=== PATIENT | male | born 1950 | race Caucasian/White ===

== ENCOUNTER 2017-12-18 12:39 | Emergency (ER) | payer OTHER ==
[~2017-12-18] VITALS: Ht 177.8 cm; Wt 85.5 kg
[~2017-12-18 12:39] MED LIST: ADVAI500I PO; ALBU8I INH; ATOR40TA PO; CLOP75 PO; ECOT81TA2 PO; ENAL2.5 PO; LEVA750T PO; PRED10PA PO; Z.0.OXYGENDME NC
[2017-12-18 12:44] VITALS: BP 129/68; PULSE 82; RESP 20; TEMP 98.8; O2SAT 93
[2017-12-18] MEDS ORDERED: ASPI-516 CHEW (13:00)
[2017-12-18] MEDS ORDERED: ATOR40TA16 PO (13:00)
[2017-12-18] MEDS ORDERED: SPIRCAP INH (13:00)
--- NOTE | 2017-12-18 13:06 | PD ---
HPI Chief Complaint: Fall Time Seen by Provider: 12:51 Travel History International Travel<30 days: No Contact w/Intl Traveler<30days: No Traveled to known affect area: No History of Present Illness HPI 67-year-old male with history of CAD, CABG, COPD, presents emergency department for evaluation following a syncopal episode. Patient has been having coughing spells over the last few weeks. He states today he got into a coughing spell and he coughed until he ended up passing out. He did fall and strike his head. He denies any chest pain or tightness. She denies any dizziness, diaphoresis , lightheadedness preceding this incident. He reports no significant pain at this time. Denies any focal deficits or weakness. Patient has no other symptoms to report at this time. PFSH Past Medical History Arthritis: No Asthma: No Cancer: No Cardiovascular Problems: Yes (ID) Chemotherapy: No Chest Pain: No COPD: Yes Cerebrovascular Accident: No Coronary Artery Disease: Yes Diabetes: No Diminished Hearing: No Endocrine: No Gastrointestinal Disorders: No Genitourinary: No Hypertension: Yes Immune Disorder: No Kidney Stones: No Musculoskeletal: No Neurologic: No Psychiatric: No Reproductive: No Respiratory: No Migraines: No Myocardial Infarction: Yes Radiation Therapy: No Renal Failure: No Thyroid Disease: No Tetanus Vaccination: Unknown Influenza Vaccination: Yes Past Surgical History AICD: No Arteriovenous Shunt: No Coronary Artery Bypass Graft: Yes Coronary Stent: Yes Ear Surgery: Yes (1960- ears pinned back) Insulin Pump: No Joint Replacement: No Pacemaker: No Tonsillectomy: Yes Social History Alcohol Use: Yes (SINGLE BEER WEEKLY) Tobacco Use: Yes (QUIT MAY 2017) Substance Use: No Allergies-Medications (Allergen,Severity, Reaction): Coded Allergies: No Known Allergies (Verified , 03/15/16) Reported Meds & Prescriptions Reported Meds & Active Scripts Active Reported Aspirin 81 Mg Chew 81 Mg CHEW DAILY Spiriva Handihaler (Tiotropium Inh) 18 Mcg Cap 18 Mcg INH DAILY 1 capsule = 18 mcg Atorvastatin (Atorvastatin Calcium) 40 Mg Tab 40 Mg PO HS Review of Systems Except as stated in HPI: all other systems reviewed are Neg Physical Exam Narrative GENERAL: Well-nourished male patient, no acute distress SKIN: Focused skin assessment warm/dry. HEAD: Atraumatic. Normocephalic. 11 cm laceration on the right parietal scalp. Bleeding is controlled EYES: Pupils equal and round. No scleral icterus. No injection or drainage. ENT: No nasal bleeding or discharge. Mucous membranes pink and moist. NECK: Trachea midline. No JVD. No cervical spine tenderness to palpation. No limitation in range of motion of cervical spine. CARDIOVASCULAR: Regular rate and rhythm. No murmur appreciated. RESPIRATORY: No accessory muscle use. Inspiratory and expiratory wheeze, diminished bases to auscultation. Breath sounds equal bilaterally. GASTROINTESTINAL: Abdomen soft, non-tender, nondistended. Hepatic and splenic margins not palpable. MUSCULOSKELETAL: No obvious deformities. No clubbing. No cyanosis. No edema. NEUROLOGICAL: Awake and alert. No obvious cranial nerve deficits. Motor grossly within normal limits. Normal speech. PSYCHIATRIC: Appropriate mood and affect; insight and judgment normal. Data Data Last Documented VS Vital Signs Date Time Temp Pulse Resp B/P (MAP) Pulse Ox O2 Delivery O2 Flow Rate FiO2 12/18/17 13:00 20 96 12/18/17 12:44 98.8 82 129/68 (88) Orders Orders Electrocardiogram (12/18/17 13:05) Basic Metabolic Panel (Bmp) (12/18/17 13:05) Complete Blood Count With Diff (12/18/17 13:05) Magnesium (Mg) (12/18/17 13:05) Ckmb (Isoenzyme) Profile (12/18/17 13:05) Troponin I (12/18/17 13:05) Act Partial Throm Time (Ptt) (12/18/17 13:05) Prothrombin Time / Inr (Pt) (12/18/17 13:05) Chest, Single Ap (12/18/17 13:05) Ct Brain W/O Iv Contrast(Rout) (12/18/17 13:05) Ecg Monitoring (12/18/17 13:05) Iv Access Insert/Monitor (12/18/17 13:05) Oximetry (12/18/17 13:05) Sodium Chloride 0.9% Flush (Ns Flush) (12/18/17 13:15) CKMB (12/18/17 13:40) CKMB% (12/18/17 13:40) Tetanus/Diphtheria Tox Adult (Tetanus/Di (12/18/17 15:00) Labs Laboratory Tests Test 12/18/17 13:40 White Blood Count 7.6 TH/MM3 Red Blood Count 4.46 MIL/MM3 Hemoglobin 14.6 GM/DL Hematocrit 43.2 % Mean Corpuscular Volume 96.9 FL Mean Corpuscular Hemoglobin 32.8 PG Mean Corpuscular Hemoglobin Concent 33.8 % Red Cell Distribution Width 12.6 % Platelet Count 216 TH/MM3 Mean Platelet Volume 8.2 FL Neutrophils (%) (Auto) 71.1 % Lymphocytes (%) (Auto) 15.0 % Monocytes (%) (Auto) 9.2 % Eosinophils (%) (Auto) 3.6 % Basophils (%) (Auto) 1.1 % Neutrophils # (Auto) 5.4 TH/MM3 Lymphocytes # (Auto) 1.1 TH/MM3 Monocytes # (Auto) 0.7 TH/MM3 Eosinophils # (Auto) 0.3 TH/MM3 Basophils # (Auto) 0.1 TH/MM3 CBC Comment DIFF FINAL Differential Comment Prothrombin Time 10.9 SEC Prothromb Time International Ratio 1.1 RATIO Activated Partial Thromboplast Time 25.1 SEC Blood Urea Nitrogen 17 MG/DL Creatinine 1.10 MG/DL Random Glucose 107 MG/DL Calcium Level 8.5 MG/DL Magnesium Level 2.3 MG/DL Sodium Level 140 MEQ/L Potassium Level 4.2 MEQ/L Chloride Level 106 MEQ/L Carbon Dioxide Level 26.6 MEQ/L Anion Gap 7 MEQ/L Estimat Glomerular Filtration Rate 67 ML/MIN Total Creatine Kinase 272 U/L Creatine Kinase MB 9.5 NG/ML Troponin I LESS THAN 0.02 NG/ML MDM Medical Decision Making Medical Screen Exam Complete: Yes Emergency Medical Condition: Yes Medical Record Reviewed: Yes Differential Diagnosis Intracranial hemorrhage versus syncope versus near syncope versus electrolyte abnormality versus cardiac arrhythmia Narrative Course 67-year-old male presents emergency department for evaluation following a syncopal episode. Patient has no focal deficits weakness on exam. He does have a large laceration to the right parietal scalp. This is approximated without difficulty. Laboratory Tests Test 12/18/17 13:40 White Blood Count 7.6 TH/MM3 Red Blood Count 4.46 MIL/MM3 Hemoglobin 14.6 GM/DL Hematocrit 43.2 % Mean Corpuscular Volume 96.9 FL Mean Corpuscular Hemoglobin 32.8 PG Mean Corpuscular Hemoglobin Concent 33.8 % Red Cell Distribution Width 12.6 % Platelet Count 216 TH/MM3 Mean Platelet Volume 8.2 FL Neutrophils (%) (Auto) 71.1 % Lymphocytes (%) (Auto) 15.0 % Monocytes (%) (Auto) 9.2 % Eosinophils (%) (Auto) 3.6 % Basophils (%) (Auto) 1.1 % Neutrophils # (Auto) 5.4 TH/MM3 Lymphocytes # (Auto) 1.1 TH/MM3 Monocytes # (Auto) 0.7 TH/MM3 Eosinophils # (Auto) 0.3 TH/MM3 Basophils # (Auto) 0.1 TH/MM3 CBC Comment DIFF FINAL Differential Comment Prothrombin Time 10.9 SEC Prothromb Time International Ratio 1.1 RATIO Activated Partial Thromboplast Time 25.1 SEC Blood Urea Nitrogen 17 MG/DL Creatinine 1.10 MG/DL Random Glucose 107 MG/DL Calcium Level 8.5 MG/DL Magnesium Level 2.3 MG/DL Sodium Level 140 MEQ/L Potassium Level 4.2 MEQ/L Chloride Level 106 MEQ/L Carbon Dioxide Level 26.6 MEQ/L Anion Gap 7 MEQ/L Estimat Glomerular Filtration Rate 67 ML/MIN Total Creatine Kinase 272 U/L Creatine Kinase MB 9.5 NG/ML Troponin I LESS THAN 0.02 NG/ML Last Impressions Head CT 12/18/17 1305 Signed Impressions: CONCLUSION: 1. Remote left basal ganglia lacunar infarct. 2. No acute intracranial abnormality. Chest X-Ray 12/18/17 1305 Signed Impressions: CONCLUSION: No acute cardiopulmonary abnormality is identified. Background lung changes are characteristic of obstructive airways disease/emphysema. Findings are reviewed and discussed with my attending physician. They are also reviewed with the patient. We are recommending that he states observation for syncopal episode however the patient does not want to do this. I have discussed with him the risks of leaving and made clear that he would have to leave AGAINST MEDICAL ADVICE. AMA: The risks of leaving against medical advice without further evaluation treatment were discussed with the patient. These risks include cardiac dysfunction, cardiac dysrhythmia, possible heart attack, possible stroke or . The patient indicated understanding of these risks and appeared to have the capacity to make this decision. Diagnosis Primary Impression: Syncope Qualified Codes: R55 - Syncope and collapse Additional Impression: Laceration of head Qualified Codes: S01.01XA - Laceration without foreign body of scalp, initial encounter Additional Instructions: Jacques are to be removed in 10 days. This can be done in the emergency department or at your primary care provider's office Follow-up with a primary care provider Return immediately with acute worsening symptoms Disposition: 07 AGAINST MEDICAL ADVICE Condition: Stable She Gayle Dec 18, 2017 13:06
[2017-12-18] MEDS ORDERED: SODIUM CHLORIDE 0.9% FLUSH 10 ML FLUSH IVF PRN (13:15)
[2017-12-18 13:46] LABS: AUTOMATED NEUTROPHIL # 5.4 TH/MM3 (1.8-7.7); BASOPHIL # 0.1 TH/MM3 (0-0.2); BASOPHIL % 1.1 % (0.0-2.0); EOSINOPHIL # 0.3 TH/MM3 (0-0.4); EOSINOPHIL % 3.6 % (0.0-4.0); HEMATOCRIT 43.2 % (39.0-51.0); HEMOGLOBIN 14.6 GM/DL (13.0-17.0); LYMPHOCYTE # 1.1 TH/MM3 (1.0-4.8); MEAN CELL VOLUME 96.9 FL (80.0-100.0); MEAN CORPUSCULAR HEMOGLOBIN 32.8 PG (27.0-34.0); MEAN CORPUSCULAR HGB CONC 33.8 % (32.0-36.0); MEAN PLATELET VOLUME 8.2 FL (7.0-11.0); MONO % 9.2 % (0.0-8.0); MONOCYTE # 0.7 TH/MM3 (0-0.9); NEUT % 71.1 % (16.0-70.0); PLATELET COUNT 216 TH/MM3 (150-450); RED BLOOD COUNT 4.46 MIL/MM3 (4.50-5.90); RED CELL DISTRIBUTION WIDTH 12.6 % (11.6-17.2); WHITE BLOOD COUNT 7.6 TH/MM3 (4.0-11.0)
[2017-12-18 14:01] LABS: INTERNATIONAL NORMALIZED RATIO 1.1 RATIO; PROTHROMBIN TIME - PATIENT 10.9 SEC (9.8-11.6)
--- NOTE | 2017-12-18 14:21 | RADRPT ---
EXAM DATE: 12/18/2017 1:31 PM EDT AGE/SEX: 67 years / Male INDICATIONS: Chest pain and short of breath this morning. CLINICAL DATA: This is the patient's initial encounter. Patient reports that signs and symptoms have been present for 1 day and indicates a pain score of 7/10. MEDICAL/SURGICAL HISTORY: Chronic obstructive pulmonary disease. CABG. Cardiac bypass. COMPARISON: POI, XR CHEST PA AND LAT, 11/28/2017. . FINDINGS: 2 AP views of the chest demonstrate a normal-sized cardiac silhouette post median sternotomy. There i s lucency in the upper lung zones with interstitial prominence. Lungs remain hyperinflated. No pleura l effusion, airspace consolidation, or pneumothorax is identified. The bones and soft tissues demonst rate no acute abnormality. CONCLUSION: No acute cardiopulmonary abnormality is identified. Background lung changes are characteristic of obs tructive airways disease/emphysema. Electronically signed by: Isaak Monroy MD 12/18/2017 2:20 PM EDT
[2017-12-18 14:23] LABS: CHLORIDE 106 MEQ/L (98-107); SODIUM (NA) 140 MEQ/L (136-145)
[2017-12-18 14:25] LABS: CALCIUM 8.5 MG/DL (8.5-10.1)
[2017-12-18 14:26] LABS: BICARBONATE 26.6 MEQ/L (21.0-32.0); BLOOD UREA NITROGEN 17 MG/DL (7-18); GLUCOSE,RANDOM 107 MG/DL (74-106); MAGNESIUM 2.3 MG/DL (1.5-2.5)
[2017-12-18 14:29] LABS: GLOMERULAR FILTRATION RATE 67 ML/MIN (>89)
[2017-12-18 14:34] LABS: TROPONIN I LESS THAN 0.02 NG/ML (0.02-0.05)
--- NOTE | 2017-12-18 14:43 | RADRPT ---
EXAM DATE: 12/18/2017 1:57 PM EDT AGE/SEX: 67 years / Male INDICATIONS: Dizziness. Fell and hit head. Laceration on top of head. CLINICAL DATA: This is the patient's initial encounter. Patient reports that signs and symptoms have been present for 1 day and indicates a pain score of 2/10. MEDICAL/SURGICAL HISTORY: Chronic obstructive pulmonary disease. Hypertension. Myocardial infarcti on. CABG. RADIATION DOSE: 61.13 CTDI (mGy) ; Patient motion COMPARISON: No prior exams available for comparison. TECHNIQUE: CT of the head without contrast. Using automated exposure control and adjustment of the mA and/or kV according to patient size, radiation dose was kept as low as reasonably achievable to ob tain optimal diagnostic quality images. DICOM format image data is available electronically for revi ew and comparison. FINDINGS: Cerebrum: Mild diffuse cerebral atrophy. 1.8 cm hypodensity in the left basal ganglia consistent wit h old lacunar infarct. The ventricles are normal for degree of atrophy. No evidence of midline shift, mass lesion, hemorrhage or acute infarction. No extraaxial fluid collections are seen. Posterior Fossa: The cerebellum and brainstem are intact. The 4th ventricle is midline. The cerebe llopontine angle is unremarkable. Extracranial: The visualized portion of the orbits is intact. Skull: The calvaria is intact. No evidence of skull fracture. CONCLUSION: 1. Remote left basal ganglia lacunar infarct. 2. No acute intracranial abnormality. Electronically signed by: Reyes Youssef MD 12/18/2017 2:41 PM EDT
[2017-12-18] MEDS ORDERED: TETANUS/DIPHTHERIA TOXOID ADULT 0.5 ML VIAL IM ONE (15:00)
--- NOTE | 2017-12-18 18:46 | EKG ---
Date Performed: 12/18/2017 Time Performed: 13:36:14 PTAGE: 67 years EKG: Sinus rhythm WITH OCCASIONAL SUPRAVENTRICULAR PREMATURE COMPLEXES LOW QRS VOLTAGE IN PRECORDIAL LEADS ANTEROSEPTA L MYOCARDIAL INFARCTION ABNORMAL ECG Since the PREVIOUS TRACING , no significant change noted PREVIOUS TRACIN03/15/2016 17.55 DOCTOR: Rosaura Dwyer Interpretating Date/Time 12/18/2017 18:44:38
== END 2017-12-18 15:18 | disposition left against medical advice (07) ==
LOC: PHEFT 12:39
DX: R55 Syncope and collapse (principal); S01.01XA Laceration without foreign body of scalp, initial encounter; R05 Cough; R94.31 Abnormal electrocardiogram [ECG] [EKG]; Z23 Encounter for immunization; W19.XXXA Unspecified fall, initial encounter; I25.10 Atherosclerotic heart disease of native coronary artery without angina pectoris; J44.9 Chronic obstructive pulmonary disease, unspecified; I10 Essential (primary) hypertension; I25.2 Old myocardial infarction; Z95.1 Presence of aortocoronary bypass graft; Z87.891 Personal history of nicotine dependence
CPT/HCPCS: 12004; 70450; 71045; 80048; 82550; 82552; 83735; 84484; 85025; 85610; 85730; 90471; 90714; 93005